=== PATIENT | male | born 1995 | race Two or more races ===

== ENCOUNTER 2025-01-27 17:39 | Emergency (ER) | payer MEDICAID, OTHER ==
[~2025-01-27] VITALS: Ht 182.9 cm; Wt 115.3 kg
[2025-01-27 17:45] VITALS: BP 123/84; PULSE 117; RESP 18; TEMP 97.7; O2SAT 96
[2025-01-27] MEDS: TETRACAINE HCL 0.5% OPTH(EYE) SOLN 4ML LEFTEYE ONE (18:51)
[2025-01-27] MEDS: FLUORESCEIN SOD OPTH TEST STRIP LEFTEYE ONE (18:51)
--- NOTE | 2025-01-27 18:55 | ED.PDOC ---
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 01/27/25 Information Source: Patient Mode of Arrival: Ambulatory Past Medical History PAST MEDICAL HISTORY: Denies Surgical History: Denies all surgeries Family History Family History: Unknown Social History Smoker: Non-Smoker Alcohol: Denies ETOH Use Drugs: Denies Drug Use Constitutional: denies: chills, diaphoresis, fatigue, fever, malaise, sweats, weakness, others EENTM: reports: eye pain, eye redness; denies: blurred vision, double vision, ear bleeding, ear discharge, ear drainage, ear pain, ear ringing, hearing loss, mouth pain, mouth swelling, nasal discharge, nose bleeding, nose congestion, nose pain, photophobia, tearing, throat pain, throat swelling, voice changes, others Respiratory: denies: cough, hemoptysis, orthopnea, SOB at rest, shortness of breath, SOB with excertion, stridor, wheezing, others Cardiovascular: denies: chest pain, dizzy spells, diaphoresis, Dyspnea on exertion, edema, irregular heart beat, left arm pain, lightheadedness, palpitations, PND, syncope, others Gastrointestinal: denies: abdomen distended, abdominal pain, blood streaked bowels, constipated, diarrhea, dysphagia, difficulty swallowing, hematemesis, melena, nausea, poor appetite, poor fluid intake, rectal bleeding, rectal pain, vomiting, others Genitourinary: denies: burning, dysuria, flank pain, frequency, hematuria, incontinence, penile discharge, penile sore, pain, testicle pain, testicle swelling, urgency, others Neurological: denies: dizziness, fainting, headache, left sided numbness, left sided weakness, numbness, paresthesia, pre-existing deficit, right sided nu mbness, right sided weakness, seizure, speech problems, tingling, tremors, weakness, others Musculoskeletal: denies: back pain, gout, joint pain, joint swelling, muscle pain, muscle stiffness, neck pain, others Integumetry: denies: bruises, change in color, change in hair/nails, dryness, laceration, lesions, lumps, rash, wounds, others Allergic/Immunocompromised: denies: Difficulty Healing, Frequent Infections, Hives, Itching, others Hematologic/Lymphatic: denies: anemia, blood clots, easy bleeding, easy bruising, swollen glands, others Endocrine: denies: excessive hunger, excessive sweating, excessive thirst, excessive urination, flushing, intolerance to cold, intolerance to heat, unexplained weight gain, unexplained weight loss, others Psychiatric: denies: anxiety, bipolar disorder, depression, hopeless, panic disorder, schizophrenia, sleepless, suicidal, others Physical Exam General Appearance: No Apparent Distress, Normal HEENT: Pharynx Normal, TMs Normal, Other (RIGHT EYE SCLERAE HYPEREMIA NO NOTED OBVIOUS FOREIGN BODY NO NOTED DRAINAGE PAIN EYE MOVEMENT) Neck: Full Range of Motion, Non-Tender, Normal, Normal Inspection Respiratory: Chest Non-Tender, Lungs Clear, No Accessory Muscle Use, No Respiratory Distress, Normal Breath Sounds Cardiovascular: No Edema, No JVD, No Murmur, No Gallop, Normal Peripheral Pulses, Regular Rate/Rhythm Breast Exam: Deferred Gastrointestinal: No Organomegaly, Non Tender, No Pulsatile Mass, Normal Bowel Sounds, Soft Genitalia: Deferred Pelvic: Deferred Rectal: Deferred Extremities: No calf tenderness, Normal capillary refill, Normal inspection, Normal range of motion, Non-tender, No pedal edema Musculoskeletal : Apperance: Normal Neurologic: Alert, queen producer II-XII nml as Tested, No Motor Deficits, Normal Affect, Normal Mood, No Sensory Deficits Cerebellar Function: Normal Reflexes: Normal Skin: Dry, Normal Color, Warm Lymphatic: No Adenopathy Was a procedure done? Was a procedure done?: Yes Sedation Sedation?: No Informed consent obtained: Yes Other Procedure Procedure WOOD'S LAMP EXAMINATION RIGHT EYE Indication POSSIBLE FOREIGN BODY Anesthetic TETRACAINE 0 1% 1 DROP RIGHT EYE Prep FLUORESCEIN Success CORNEAL ABRASION 4 O'CLOCK POSITION NO NOTED FOREIGN BODY, LACERATION, ULCER OR GLOBE TRAUMA PATIENT TOLERATED WELL Informed consent obtained: Yes Risks, benefits, and alternati: Yes EENT DIFF Eye: Corneal Ulceration, Foreign Body-Conjunctiva, Foreign Body-Corneal, Foreign Body-Intraocular, Foreign Body-Lid X-Ray, Labs, Meds, VS Vital Signs Date Time Temp Pulse Resp B/P (MAP) Pulse Ox O2 Delivery O2 Flow Rate FiO2 01/27/25 17:45 117 18 01/27/25 17:45 97.7 117 18 123/84 (97) 96 97.7 01/27/25 17:45 97.7 117 18 123/84 (97) 96 97.7 Current Medications Medications (Trade) Dose Ordered Sig/Hugh Route Start Time Stop Time Status Last Admin Tetracaine HCl (Tetracaine 0.5% Opth Soln) 1 drop ONCE ONCE LEFTEYE 01/27/25 18:45 01/27/25 18:46 DC 01/27/25 18:51 Fluorescein Sodium (Ful-Serena) 1 mg ONCE ONCE LEFTEYE 01/27/25 18:45 01/27/25 18:46 DC 01/27/25 18:51 X-Ray, Labs, Meds, VS Comment SEE PROCEDURE NOTE. SCRIPT PROPHYLACTIC EYEDROPS ADVISED TO TAKE MEDICATION PRESCRIBED SIDE EFFECTS DISCUSSED ADVISED PATIENT TO FOLLOW UP WITH ZYGLO TECHNICIAN OR OPHTHALMOLOGY FOR SLIT-LAMP EXAM WITHIN 24-48 HOURS. ADVISED ON ER RETURN PRECAUTIONS PATIENT INDICATES UNDERSTANDING AGREES WITH DISCHARGE PLAN OF CARE. Time of 1ST Reevaluation: 18:54 Reevaluation 1ST: Unchanged Time of 2ND Reevaluation: 19:05 Reevaluation 2ND: Improved Patient Education/Counseling: Diagnosis, Treatment, Prognosis, Need For Follow Up Family Education/Counseling: No Family Present Departure 1 Departure Time of Disposition: 19:05 Impression: Primary Impression: Foreign body, intraocular Qualified Codes: S05.51XA - Penetrating wound with foreign body of right eyeball, initial encounter Disposition: HOME / SELF CARE / HOMELESS Condition: Stable Additional Instructions: FOLLOW UP WITH AN ZYGLO TECHNICIAN OR STOCK HANDLER WITHIN THE NEXT 24-48 HOURS DISCUSSED. e-Prescriptions Moxifloxacin Hydrochloride (Moxifloxacin) 0.5 % Eitan 1 DROP RIGHTEYE TID for 7 Days, #3 ML Prov: ANTOINE BEASLEY 01/27/25 Discharged With: Self Critical Care Note Critical Care Time?: No Stability Stability form required: ANTOINE Paula January 27, 2025 18:54
[2025-01-27] MEDS ORDERED: MOXI0.5D9 RIGHTEYE (19:06)
== END 2025-01-27 19:21 | disposition home or self-care (01) ==
LOC: ER 17:39
DX: S05.51XA Penetrating wound with foreign body of right eyeball, initial encounter (principal); W44.9XXA Unspecified foreign body entering into or through a natural orifice, initial encounter; Y93.89 Activity, other specified; Y92.89 Other specified places as the place of occurrence of the external cause; Y99.8 Other external cause status